=== PATIENT | female | born 1940 | race Caucasian/White ===

== ENCOUNTER 2019-08-01 05:33 | Emergency (ER) | payer MEDICARE, OTHER ==
[2019-08-01 06:03] VITALS: BMI 25.6
--- NOTE | 2019-08-01 06:08 | PDOC ---
History of Present Illness - General Chief Complaint: Nausea Stated Complaint: NAUSEA Time Seen by Provider: 08/01/19 05:59 - History of Present Illness Initial Comments: 08/01/19 06:12 78 y/o female with a PMHx of arrthymia (s/p PPM in May 2019), cholecystectomy, NIDDM and HTN with c/o gas since yesterday evening at 9 pm. No nausea/vomiting, diarrhea/constipation. Last PO intake was chicken at 5 pm. Last BM was Thursday and was normal. 10 point ROS is negative including no chest pain, no shortness of breath, no lightheadedness, no palpitations, no sore throat, no cough. Past History - Past Medical History Allergies/Adverse Reactions: Allergies Allergy/AdvReac Type Severity Reaction Status Date / Time diphenhydramine Allergy Unknown Verified 08/01/19 06:03 [[facility] Home Medications: Ambulatory Orders Bisoprolol/Hydrochlorothiazide [Bisoprolol-Hctz 5-6.25 mg Tab] 1 each PO DAILY 10/12/17 Meclizine HCl [Antivert -] 25 mg PO TID PRN 10/12/17 Simvastatin 10 mg PO DAILY 10/12/17 COPD: No Diabetes: Yes HTN: Yes - Psycho Social/Smoking Cessation Hx Smoking History: Never smoked Hx Alcohol Use: No Drug/Substance Use Hx: No Substance Use Type: None Review of Systems - Review of Systems Constitutional: No: Chills, Fever HEENTM: No: Blurred Vision, Recent change in vision Respiratory: No: Cough, Shortness of Breath Cardiac (ROS): No: Chest Pain, Lightheadedness, Palpitations ABD/GI: No: Constipated, Diarrhea, Nausea, Vomiting *Physical Exam - Vital Signs Last Vital Signs Temp Pulse Resp BP Pulse Ox 98.1 F 78 16 158/89 99 08/01/19 05:35 08/01/19 05:35 08/01/19 05:35 08/01/19 05:35 08/01/19 05:35 - Physical Exam General Appearance: Yes: Nourished, Appropriately Dressed HEENT: positive: Normal Voice, Hearing Grossly Normal Neck: positive: Trachea midline, Supple Respiratory/Chest: positive: Lungs Clear, Normal Breath Sounds Cardiovascular: positive: S1, S2 Gastrointestinal/Abdominal: positive: Soft. negative: Distended, Guarding, Tenderness, Hernia, Mass Musculoskeletal: negative: CVA Tenderness (R), CVA Tenderness (L) Extremity: positive: Normal Capillary Refill, Normal Inspection Integumentary: positive: Normal Color, Dry, Warm ED Treatment Course - LABORATORY CBC & Chemistry Diagram: 08/01/19 06:15 08/01/19 06:15 Medical Decision Making - Medical Decision Making 08/01/19 06:36 78 y/o female with abdominal pain. VS unremarkable No TTP on belly exam Will check belly labs + GI cocktail. Reassess. 08/01/19 06:51 Patient reassessed @ bedside Symptomatically improved s/p GI cocktail. 08/01/19 07:20 Patient signed out to Dr. Morse (PGY-3) and Dr. Melton (Attending) Plan is for d/c home pending no lab abnormalities. Patient and patient's introduced to oncoming resident. Patient will see her PMD, Dr. Mujica, this week. Discharge - Discharge Information Problems reviewed: Yes Clinical Impression/Diagnosis: Abdominal pain Condition: Fair - Follow up/Referral Referrals: Iván Mujica MD [Primary Care Provider] - - Patient Discharge Instructions - Post Discharge Activity
[2019-08-01] MEDS ORDERED: SODIUM CHLORIDE 0.9% 500 ML INFUS.BAG IV ONE (06:10)
[2019-08-01] MEDS ORDERED: FAMOTIDINE 20 MG/50 ML IVPB 20 MG/50 ML MG IVPB ONE ×2 (06:10→06:16)
[2019-08-01] MEDS ORDERED: MAG HYDROX/AL HYDROX/SIMETH -MYLANTA- ORAL SUSPENSION PO ONE (06:10)
[2019-08-01] MEDS ORDERED: MAG HYDROX/AL HYDROX/SIMETH 30 ML UNIT-DOSE CUP ONE (06:16)
--- NOTE | 2019-08-01 06:22 | PDOC ---
Attending Attestation - Resident Resident Name: VenessaNicci - ED Attending Attestation I have performed the following: I have examined & evaluated the patient, The case was reviewed & discussed with the resident, I agree w/resident's findings & plan, Exceptions are as noted - HPI HPI: 08/01/19 06:20 78yoF hx of emory and ppm presnets c/o lower abd "gassy" pain x last night. Unable to sleep 2/2 abd discomfort. no bloatinng. + passing gas, no n/v/d, no cp/sob. - Physicial Exam PE: 08/01/19 06:22 NAD abd soft NTND, no guarding, no rebound. A&O x 3 - Medical Decision Making 08/01/19 06:23 78yoFpresnets w/ diffuse lower abd discomfort x last night. - labs - gi meds - reeval and dispo per results.
[2019-08-01 06:43] LABS: EOS % 0.9 % (0-4.5); HEMATOCRIT 37.6 % (32.4-45.2); HEMOGLOBIN 12.5 GM/dL (10.7-15.3); LYMPH % 11.9 % (8-40); MCH 30.9 pg (25.7-33.7); MCHC 33.2 g/dl (32.0-36.0); MEAN CELL VOLUME 92.9 fl (80-96); MEAN PLT VOLUME 7.9 fl (7.5-11.1); MONO % 9.1 % (3.8-10.2); NEUT % 77.1 % (42.8-82.8); PLATELET COUNT 311 K/MM3 (134-434); RBC 4.04 M/mm3 (3.60-5.2); RDW 14.8 % (11.6-15.6); WHITE BLOOD COUNT 10.5 K/mm3 (4.0-10.0)
--- NOTE | 2019-08-01 07:25 | PDOC ---
*Physical Exam - Vital Signs Last Vital Signs Temp Pulse Resp BP Pulse Ox 98.1 F 78 16 158/89 99 08/01/19 05:35 08/01/19 05:35 08/01/19 05:35 08/01/19 05:35 08/01/19 05:35 ED Treatment Course - LABORATORY CBC & Chemistry Diagram: 08/01/19 06:15 08/01/19 06:15 - ADDITIONAL ORDERS Additional order review: Laboratory Results 08/01/19 06:15 Lipase 299 08/01/19 06:15 RBC 4.04 MCV 92.9 MCHC 33.2 RDW 14.8 D MPV 7.9 D Neutrophils % 77.1 D Lymphocytes % 11.9 D Monocytes % 9.1 Eosinophils % 0.9 D Basophils % 1.0 - Medications Given in the ED: ED Medications Discontinued Medications Generic Name Dose Route Start Last Admin Trade Name Skyler PRN Reason Stop Dose Admin Al Hydroxide/Mg Hydroxide 30 ml 08/01/19 06:10 08/01/19 06:30 Mylanta Suspension - PO 08/01/19 06:11 30 mg ONCE ONE Administration Famotidine/Sodium Chloride 20 mg in 50 mls @ 100 mls/hr 08/01/19 06:10 06:30 Pepcid 20 Mg Premixed Ivpb - IVPB 08/01/19 06:39 100 mls/hr ONCE ONE Administration Sodium Chloride 1,000 ml 08/01/19 06:10 08/01/19 06:30 Normal Saline - IV 08/01/19 06:11 1,000 ml ONCE ONE Administration Medical Decision Making - Medical Decision Making 08/01/19 07:[address] Clifford. Patient is 78F here today with sensation of gas in her abdomen. Patient feeling better, likely discharge. Labs normal. Pain improved. Discharged home. Discharge - Discharge Information Problems reviewed: Yes Clinical Impression/Diagnosis: Abdominal pain Condition: Good Disposition: HOME - Admission No - Follow up/Referral Referrals: Iván Mujica MD [Primary Care Provider] - - Patient Discharge Instructions Patient Printed Discharge Instructions: DI for Abdominal Pain-Adult Additional Instructions: Please follow up with your primary care doctor this week. Please return if you have any new, worsening or concerning symptoms, especially increasing pain, vomiting and fever. - Post Discharge Activity
[2019-08-01 07:27] LABS: ALBUMIN 3.4 g/dl (3.4-5.0); BILIRUBIN,TOTAL 0.8 mg/dL (0.2-1); BLOOD UREA NITROGEN 10.8 mg/dL (7-18); CALCIUM 9.1 mg/dL (8.5-10.1); CREATININE 0.9 mg/dL (0.55-1.3); TOT PROT 7.5 g/dl (6.4-8.2)
[2019-08-01 08:00] VITALS: BP 132/65; PULSE 70; TEMP 97.9
== END 2019-08-01 08:00 | disposition home or self-care (01) ==
LOC: JER 05:33
PROC: 3E0337Z Introduction of Electrolytic and Water Balance Substance into Peripheral Vein, Percutaneous Approach (ICD-10-PCS; principal; 2019-08-01)
DX: R10.9 Unspecified abdominal pain (principal); I10 Essential (primary) hypertension; E11.9 Type 2 diabetes mellitus without complications; Z79.84 Long term (current) use of oral hypoglycemic drugs; Z86.73 Personal history of transient ischemic attack (TIA), and cerebral infarction without residual deficits; Z95.0 Presence of cardiac pacemaker; Z90.49 Acquired absence of other specified parts of digestive tract
CPT/HCPCS: 36415; 80053; 83690; 85025; 96365; 99282-25

== ENCOUNTER 2020-11-04 02:24 | Emergency (ER) | payer OTHER ==
[2020-11-04 03:01] VITALS: PULSE 70; TEMP 98.4; BMI 27.2
[2020-11-04 06:36] VITALS: BP 160/78
== END 2020-11-04 07:49 | disposition home or self-care (01) ==
LOC: JER 02:24
DX: M79.10 Myalgia, unspecified site (principal)
CPT/HCPCS: 71045-TC-FY; 87804; 93005; 93010; 99284-25; C9803; U0003; U0005